=== PATIENT | female | born 1980 | race Caucasian/White ===

== ENCOUNTER 2017-01-27 08:34 | Emergency (ER) | payer OTHER ==
[~2017-01-27] VITALS: Ht 162.6 cm; Wt 78.5 kg
[~2017-01-27 08:34] MED LIST: ACET325 PO
[2017-01-27 08:40] VITALS: BP 118/74; PULSE 66; RESP 18; TEMP 98.7
[2017-01-27] MEDS ORDERED: [UNRECOGNIZED DRUG - REMARK] PO (08:58)
[2017-01-27] MEDS ORDERED: ACETAMINOPHEN 500 MG CPLT PO ONE (09:00)
--- NOTE | 2017-01-27 09:00 | PD ---
HPI Chief Complaint: Chest Pain Time Seen by Provider: 08:46 Travel History International Travel<30 days: No Contact w/Intl Traveler<30days: No Traveled to known affect area: No History of Present Illness HPI 36yo F with no significant PMH presents to the ED with c/o intermittent left sided chest pain for 4 days. Pain is stabbing, lasts few seconds and nonradiating. Pt has been coughing and having some nasal congestion for a few days. Associated with some sob and nausea. Denies any fever, vomiting, abdominal pain, diarrhea, history of AL, family history of sudden cardiac deaths when they are young. Denies cig smoking or cocaine use. Pt took aspirin at home. PFSH Past Medical History Cancer: No Cardiovascular Problems: No Diabetes: No Diminished Hearing: No Endocrine: No Glaucoma: No Genitourinary: No Hepatitis: Yes (HEPATITIS-B ) Hiatal Hernia: No Hypertension: No Immune Disorder: No Musculoskeletal: No Neurologic: No Psychiatric: Yes (ANXIETY) Respiratory: No Immunizations Current: Yes Thyroid Disease: No ?: Not LMP: LAST MONTH Dilation and Curettage (D&C): Yes Past Surgical History Abdominal Surgery: No Body Medical Devices: NONE Cardiac Surgery: No Ear Surgery: No Endocrine Surgery: No Eye Surgery: No Genitourinary Surgery: No Gynecologic Surgery: Yes (D&C) Oral Surgery: Yes (WISDOM TEETH, T&A) Pacemaker: No Thoracic Surgery: No Other Surgery: Yes (WISDOM TEETH) Social History Alcohol Use: No Tobacco Use: No Substance Use: No Allergies-Medications (Allergen,Severity, Reaction): Coded Allergies: No Known Allergies (Verified , 01/27/17) Reported Meds & Prescriptions Reported Meds & Active Scripts Active Acetaminophen Extra Strength (Acetaminophen) 500 Mg Tab 500 Mg PO Q6H PRN Reported [ control pills] 1 Tab PO DAILY Review of Systems Except as stated in HPI: all other systems reviewed are Neg Physical Exam Narrative GENERAL: 36yo F not in distress. SKIN: Focused skin assessment warm/dry. HEAD: Atraumatic. Normocephalic. EYES: Pupils equal and round. No scleral icterus. No injection or drainage. ENT: No nasal bleeding or discharge. Mucous membranes pink and moist. NECK: Trachea midline. No JVD. CARDIOVASCULAR: Regular rate and rhythm. No murmur appreciated. RESPIRATORY: No accessory muscle use. Clear to auscultation. Breath sounds equal bilaterally. GASTROINTESTINAL: Abdomen soft, non-tender, nondistended. MUSCULOSKELETAL: No obvious deformities. No clubbing. No cyanosis. No edema. NEUROLOGICAL: Awake and alert. No obvious cranial nerve deficits. Motor grossly within normal limits. Normal speech. PSYCHIATRIC: Appropriate mood and affect; insight and judgment normal. Data Data Last Documented VS Vital Signs Date Time Temp Pulse Resp B/P Pulse Ox O2 Delivery O2 Flow Rate FiO2 01/27/17 10:30 16 01/27/17 10:10 66 110/73 99 Room Air 01/27/17 08:40 98.7 Orders Basic Metabolic Panel (Bmp) (01/27/17 08:55) Ckmb (Isoenzyme) Profile (01/27/17 08:55) Complete Blood Count With Diff (01/27/17 08:55) D-Dimer (01/27/17 08:55) Magnesium (Mg) (01/27/17 08:55) Prothrombin Time / Inr (Pt) (01/27/17 08:55) Act Partial Throm Time (Ptt) (01/27/17 08:55) Troponin I (01/27/17 08:55) Chest, Single Ap (01/27/17 08:55) Ecg Monitoring (01/27/17 08:55) Bilateral Bp Monitoring (01/27/17 08:55) Oximetry (01/27/17 08:55) Acetaminophen (Tylenol) (01/27/17 09:00) Electrocardiogram (01/27/17 ) Labs Laboratory Tests Test 01/27/17 09:05 White Blood Count 7.7 TH/MM3 Red Blood Count 4.05 MIL/MM3 Hemoglobin 12.5 GM/DL Hematocrit 37.2 % Mean Corpuscular Volume 91.8 FL Mean Corpuscular Hemoglobin 30.9 PG Mean Corpuscular Hemoglobin 33.7 % Concent Red Cell Distribution Width 13.6 % Platelet Count 238 TH/MM3 Mean Platelet Volume 9.5 FL Neutrophils (%) (Auto) 75.3 % Lymphocytes (%) (Auto) 17.7 % Monocytes (%) (Auto) 4.9 % Eosinophils (%) (Auto) 0.5 % Basophils (%) (Auto) 1.6 % Neutrophils # (Auto) 5.8 TH/MM3 Lymphocytes # (Auto) 1.4 TH/MM3 Monocytes # (Auto) 0.4 TH/MM3 Eosinophils # (Auto) 0.0 TH/MM3 Basophils # (Auto) 0.1 TH/MM3 CBC Comment DIFF FINAL Differential Comment Prothrombin Time 9.8 SEC Prothromb Time International 0.9 RATIO Ratio Activated Partial 27.5 SEC Thromboplast Time D-Dimer Quantitative (PE/DVT) 0.35 MG/L FEU Sodium Level 143 MEQ/L Potassium Level 4.1 MEQ/L Chloride Level 108 MEQ/L Carbon Dioxide Level 27.9 MEQ/L Anion Gap 7 MEQ/L Blood Urea Nitrogen 12 MG/DL Creatinine 0.80 MG/DL Estimat Glomerular Filtration 82 ML/MIN Rate Random Glucose 94 MG/DL Calcium Level 8.8 MG/DL Magnesium Level 2.0 MG/DL Total Creatine Kinase 63 U/L Troponin I LESS THAN 0.02 NG/ML MDM Medical Decision Making Medical Screen Exam Complete: Yes Emergency Medical Condition: Yes Interpretation(s) EKG: NSR 67bpm. Normal axis. No ST segment elevation or depression. Laboratory Tests Test 01/27/17 09:05 White Blood Count 7.7 TH/MM3 (4.0-11.0) Red Blood Count 4.05 MIL/MM3 (4.00-5.30) Hemoglobin 12.5 GM/DL (11.6-15.3) Hematocrit 37.2 % (35.0-46.0) Mean Corpuscular Volume 91.8 FL (80.0-100.0) Mean Corpuscular Hemoglobin 30.9 PG (27.0-34.0) Mean Corpuscular Hemoglobin 33.7 % Concent (32.0-36.0) Red Cell Distribution Width 13.6 % (11.6-17.2) Platelet Count 238 TH/MM3 (150-450) Mean Platelet Volume 9.5 FL (7.0-11.0) Neutrophils (%) (Auto) 75.3 % (16.0-70.0) Lymphocytes (%) (Auto) 17.7 % (9.0-44.0) Monocytes (%) (Auto) 4.9 % (0.0-8.0) Eosinophils (%) (Auto) 0.5 % (0.0-4.0) Basophils (%) (Auto) 1.6 % (0.0-2.0) Neutrophils # (Auto) 5.8 TH/MM3 (1.8-7.7) Lymphocytes # (Auto) 1.4 TH/MM3 (1.0-4.8) Monocytes # (Auto) 0.4 TH/MM3 (0-0.9) Eosinophils # (Auto) 0.0 TH/MM3 (0-0.4) Basophils # (Auto) 0.1 TH/MM3 (0-0.2) CBC Comment DIFF FINAL Differential Comment Prothrombin Time 9.8 SEC (9.8-11.6) Prothromb Time International 0.9 RATIO Ratio Activated Partial 27.5 SEC Thromboplast Time (24.3-30.1) D-Dimer Quantitative (PE/DVT) 0.35 MG/L FEU (0.00-0.50) Sodium Level 143 MEQ/L (136-145) Potassium Level 4.1 MEQ/L (3.5-5.1) Chloride Level 108 MEQ/L (98-107) Carbon Dioxide Level 27.9 MEQ/L (21.0-32.0) Anion Gap 7 MEQ/L (5-15) Blood Urea Nitrogen 12 MG/DL (7-18) Creatinine 0.80 MG/DL (0.50-1.00) Estimat Glomerular Filtration 82 ML/MIN (>89) Rate Random Glucose 94 MG/DL (74-106) Calcium Level 8.8 MG/DL (8.5-10.1) Magnesium Level 2.0 MG/DL (1.5-2.5) Troponin I LESS THAN 0.02 NG/ML (0.02-0.05) Last Impressions Chest X-Ray 01/27/17 0855 Signed Impressions: Service Date/Time: Friday, January 27, 2017 09:15 - CONCLUSION: No acute cardiopulmonary abnormality is identified. Maximo Enriquez MD Differential Diagnosis Musculoskeletal pain vs. GERD vs. atypical chest pain vs. PE (lower suspicion, low probability, will do D-dimer) vs. pneumonia vs. costochondritis Narrative Course 36yo F with atypical chest pain. Pt has no risk factors. Labs reviewed, no leukocytosis. Troponin negative. D-dimer negative. CXR showed no acute cardiopulmonary abnormality. I do not feel that pt's chest pain is cardiac in origin. Acetaminophen 500mg PO given. Pt reevaluated at bedside. States chest pain and sob has resolved. Pt is saturating at 100% on RA. Instructed pt to follow up with PMD as outpatient. Return precautions given. Diagnosis Primary Impression: Atypical chest pain Patient Instructions: General Instructions Departure Forms: Tests/Procedures Additional Instructions: Please follow up with your PMD in 3-7 days. Return to the ED if symptoms worsen. Med/Other Pt SpecificInfo: Prescription(s) given Scripts Acetaminophen (Acetaminophen Extra Strength)500 Mg Srq825 Mg PO Q6H PRN (PAIN SCALE 1 TO 4) #20 TAB Ref 0 Prov:Dina Burden DO 01/27/17 Disposition: 01 DISCHARGE HOME Condition: Stable Dina Burden DO Jan 27, 2017 09:00
[2017-01-27 09:10] VITALS: BP_SYST 108; BP_SYST 134; BP_DIAS 72; BP_DIAS 74; PULSE 68; RESP 18; O2SAT 97
[2017-01-27 09:23] LABS: AUTOMATED NEUTROPHIL # 5.8 TH/MM3 (1.8-7.7); BASOPHIL # 0.1 TH/MM3 (0-0.2); BASOPHIL % 1.6 % (0.0-2.0); EOSINOPHIL % 0.5 % (0.0-4.0); HEMATOCRIT 37.2 % (35.0-46.0); LYMPH % 17.7 % (9.0-44.0); LYMPHOCYTE # 1.4 TH/MM3 (1.0-4.8); MEAN CELL VOLUME 91.8 FL (80.0-100.0); MEAN CORPUSCULAR HEMOGLOBIN 30.9 PG (27.0-34.0); MEAN CORPUSCULAR HGB CONC 33.7 % (32.0-36.0); MONO % 4.9 % (0.0-8.0); NEUT % 75.3 % (16.0-70.0); PLATELET COUNT 238 TH/MM3 (150-450); RED BLOOD COUNT 4.05 MIL/MM3 (4.00-5.30); RED CELL DISTRIBUTION WIDTH 13.6 % (11.6-17.2); WHITE BLOOD COUNT 7.7 TH/MM3 (4.0-11.0)
[2017-01-27 09:25] LABS: HEMO FLAGS DIFF FINAL
--- NOTE | 2017-01-27 09:25 | RADHPO ---
EXAM DATE/TIME: 01/27/2017 09:15 [facility] COMPARISON: No previous studies available for comparison. INDICATIONS : Shortness of breath and chest pain. MEDICAL HISTORY : Hepatitis B. SURGICAL HISTORY : None. ENCOUNTER: Initial ACUITY: 4 - 6 days PAIN SCORE: 1/10 LOCATION: Left chest FINDINGS: Portable AP view of the chest demonstrates a normal-sized cardiac silhouette. No effusion, consolidat ion, or pneumothorax is visualized. The bones and soft tissues demonstrate no acute abnormality. CONCLUSION: No acute cardiopulmonary abnormality is identified. Maximo Enriquez MD on January 27, 2017 at 9:23 Board Certified Radiologist. This report was verified electronically.
[2017-01-27 09:42] LABS: APTT (PATIENT) 27.5 SEC (24.3-30.1); INTERNATIONAL NORMALIZED RATIO 0.9 RATIO; PROTHROMBIN TIME - PATIENT 9.8 SEC (9.8-11.6)
[2017-01-27 10:02] LABS: BICARBONATE 27.9 MEQ/L (21.0-32.0)
[2017-01-27 10:04] LABS: ANION GAP 7 MEQ/L (5-15); CHLORIDE 108 MEQ/L (98-107); POTASSIUM 4.1 MEQ/L (3.5-5.1); SODIUM (NA) 143 MEQ/L (136-145)
[2017-01-27 10:05] LABS: GLOMERULAR FILTRATION RATE 82 ML/MIN (>89)
[2017-01-27 10:08] LABS: BLOOD UREA NITROGEN 12 MG/DL (7-18)
[2017-01-27 10:10] VITALS: BP 110/73; PULSE 66; RESP 16; O2SAT 99
[2017-01-27] MEDS ORDERED: ACET500T36 PO (10:25)
[2017-01-27 10:30] VITALS: RESP 16
[2017-01-27 11:58] LABS: CREATINE KINASE 63 U/L (26-192)
--- NOTE | 2017-01-27 13:24 | EKG ---
Date Performed: 01/27/2017 Time Performed: 08:45:06 PTAGE: 36 years EKG: Sinus rhythm rSr'(V1) - probable normal variant Normal ECG NO PREVIOUS TRACING DOCTOR: Chele Manzano Interpretating Date/Time 01/27/2017 13:21:44
== END 2017-01-27 10:50 | disposition home or self-care (01) ==
LOC: PHED 08:34
DX: R07.89 Other chest pain (principal); R06.02 Shortness of breath; B19.10 Unspecified viral hepatitis B without hepatic coma
CPT/HCPCS: 71010; 80048; 82550; 83735; 84484; 85025; 85379; 85610; 85730; 93005